=== PATIENT | male | born 1985 | race African-American/Black ===

== ENCOUNTER 2018-02-16 03:26 | Emergency (ER) | payer MEDICAID ==
[~2018-02-16] VITALS: Ht 167.6 cm; Wt 100.0 kg
[2018-02-16] MEDS ORDERED: KETOROLAC 60MG/2ML VIAL IM ONE (04:45)
[2018-02-16] MEDS ORDERED: LIDOCAINE HCL 1% 20ML VIAL (Pyxis) INJ INFIL ONE (06:15)
[2018-02-16] MEDS ORDERED: MORPHINE SULFATE 10 MG/ML CPJ IM ONE (06:45)
[2018-02-16] MEDS ORDERED: LIDOCAINE HCL/PF 1% 10 MG/ML 5ML VIAL IJ ONE (06:45)
[2018-02-16 07:25] VITALS: BP 118/75
== END 2018-02-16 09:15 | disposition home or self-care (01) ==
LOC: ER 08:24
DX: S82.391A Other fracture of lower end of right tibia, initial encounter for closed fracture (principal); S82.831A Other fracture of upper and lower end of right fibula, initial encounter for closed fracture; R60.0 Localized edema; F17.200 Nicotine dependence, unspecified, uncomplicated; Z88.0 Allergy status to penicillin; W01.0XXA Fall on same level from slipping, tripping and stumbling without subsequent striking against object, initial encounter; Y93.51 Activity, roller skating (inline) and skateboarding; Y92.488 Other paved roadways as the place of occurrence of the external cause
CPT/HCPCS: 27825; 73590; 73610; 96372; 99284; J1885; J2270; J3490; Z7610

== ENCOUNTER 2018-02-18 09:55 | Emergency (ER) | payer MEDICAID ==
[~2018-02-18] VITALS: Ht 167.6 cm; Wt 104.0 kg
[2018-02-18 13:40] VITALS: BP 150/80
== END 2018-02-18 14:00 | disposition home or self-care (01) ==
LOC: ER 10:25
DX: Z46.89 Encounter for fitting and adjustment of other specified devices (principal); S82.401G Unspecified fracture of shaft of right fibula, subsequent encounter for closed fracture with delayed healing; M79.89 Other specified soft tissue disorders; X58.XXXD Exposure to other specified factors, subsequent encounter; R03.0 Elevated blood-pressure reading, without diagnosis of hypertension; Z88.0 Allergy status to penicillin; F17.210 Nicotine dependence, cigarettes, uncomplicated
CPT/HCPCS: 29515; 99281

== ENCOUNTER 2019-01-20 10:23 | Emergency (ER) | payer MEDICAID ==
[~2019-01-20] VITALS: Ht 167.6 cm; Wt 104.0 kg
[2019-01-20 11:03] VITALS: BP 155/98
== END 2019-01-20 11:09 | disposition home or self-care (01) ==
LOC: ER 10:23
DX: M25.571 Pain in right ankle and joints of right foot (principal); M79.89 Other specified soft tissue disorders; I10 Essential (primary) hypertension
CPT/HCPCS: 99282

== ENCOUNTER 2019-02-16 10:55 | Emergency (ER) | payer MEDICAID ==
[~2019-02-16] VITALS: Ht 170.2 cm; Wt 89.0 kg
[2019-02-16] MEDS ORDERED: IBUPROFEN 400MG TABLET PO ONE (13:15)
[2019-02-16 14:08] VITALS: BP 135/95
== END 2019-02-16 14:10 | disposition home or self-care (01) ==
LOC: ER 11:23
DX: J06.9 Acute upper respiratory infection, unspecified (principal); F12.10 Cannabis abuse, uncomplicated; Z88.0 Allergy status to penicillin; Z98.890 Other specified postprocedural states
CPT/HCPCS: 99283

== ENCOUNTER 2019-10-07 11:49 | Emergency (ER) | payer MEDICAID | END 2019-10-07 13:05 | disposition left against medical advice (07) | LOC: ER 11:49 | DX: J02.9 Acute pharyngitis, unspecified (principal); R05 Cough; R11.0 Nausea; Z53.21 Procedure and treatment not carried out due to patient leaving prior to being seen by health care provider ==

== ENCOUNTER 2021-08-05 07:29 | Emergency (ER) | payer MEDICAID ==
[~2021-08-05] VITALS: Ht 167.6 cm; Wt 100.0 kg
[2021-08-05 07:39] VITALS: BP 157/105
[2021-08-05 08:18] LABS: BASOPHILS % 0.9 % (0.0-2.0); EOSINOPHILS % 0.4 % (0.0-5.0); HEMATOCRIT. 47.1 % (42.0-52.0); HEMOGLOBIN. 15.7 g/dL (14.0-18.0); LYMPHOCYTES % 29.2 % (20.0-50.0); MEAN CORPUSCULAR HEMOGLOBIN 26.1 pg (28.0-32.0); MEAN CORPUSCULAR VOLUME 78.2 fL (80.0-94.0); MEAN PLATELET VOLUME 8.2 fl (7.4-10.4); NEUTROPHILS % 56.5 % (40.0-76.0); PLATELET 271 x1000/uL (130-400); RED BLOOD CELL COUNT 6.03 mill/uL (4.7-6.1); RED CELL DISTRIBUTION WIDTH 14.6 % (11.6-14.6)
[2021-08-05 08:19] LABS: CLARITY URINE CLEAR (CLEAR); COLOR URINE YELLOW (YELLOW); KETONES URINE 3+ (NEGATIVE); LEUKOCYTE ESTERASE URINE NEGATIVE (NEGATIVE); NITRITE URINE NEGATIVE (NEGATIVE); OCCULT BLOOD URINE 1+ (NEGATIVE); PH URINE 5.5 (4.5-8.0); PROTEIN URINE 2+ (NEGATIVE); SPECIFIC GRAVITY URINE 1.022 (1.005-1.030)
[2021-08-05 08:29] LABS: CHLORIDE 102 mEq/L (98-107)
[2021-08-05] MEDS ORDERED: FAMOTIDINE 20MG/2ML VIAL IV STA (08:32)
[2021-08-05] MEDS ORDERED: SODIUM CHLORIDE 0.9% 1,000 ML IV ONE (08:45)
[2021-08-05] MEDS ORDERED: VISCOUS LIDOCAINE 2% 15 ML UDC PO STA (09:30)
[2021-08-05] MEDS ORDERED: MAGNESIUM/ALUMINUM HYDROXIDE/SIMETHICONE 30ML UDC PO STA (09:30)
[2021-08-05] MEDS ORDERED: ONDA4TAB11 PO (10:06)
[2021-08-05] MEDS ORDERED: OMEP20CA14 MT (10:06)
== END 2021-08-05 10:24 | disposition home or self-care (01) ==
LOC: ER 07:29
DX: K76.0 Fatty (change of) liver, not elsewhere classified (principal); Z88.0 Allergy status to penicillin; Z98.890 Other specified postprocedural states
CPT/HCPCS: 36415; 76705; 80053; 81003; 83690; 85025; 99284; J7030; Z7610

== ENCOUNTER 2023-01-05 08:31 | Emergency (ER) | payer MEDICAID, OTHER ==
[~2023-01-05] VITALS: Ht 165.1 cm; Wt 98.9 kg
[~2023-01-05 08:31] MED LIST: OMEP20CA14 MT; ONDA4TAB11 PO
[2023-01-05 08:40] VITALS: TEMP 98.5; O2SAT 99
[2023-01-05] MEDS ORDERED: AMOX-494 MT (09:23)
[2023-01-05 09:30] VITALS: BP 166/98; PULSE 90; RESP 16
[2023-01-05] MEDS ORDERED: DEXAMETHASONE 10 MG/ML VIAL IM ONE (09:30)
[2023-01-05] MEDS ORDERED: KETOROLAC 60MG/2ML VIAL IM ONE (09:30)
== END 2023-01-05 09:45 | disposition home or self-care (01) ==
LOC: ER 08:31
DX: J02.9 Acute pharyngitis, unspecified (principal); Z88.0 Allergy status to penicillin; Z98.890 Other specified postprocedural states
CPT/HCPCS: 99284; 87430; 87070; 96372; J1100; J1885

== ENCOUNTER 2023-10-12 07:50 | Emergency (ER) | payer MEDICAID ==
[~2023-10-12] VITALS: Ht 167.6 cm; Wt 104.0 kg
[~2023-10-12 07:50] MED LIST changes: +AMOX-494 MT
[2023-10-12 08:10] VITALS: BP 183/102; RESP 20; TEMP 98.1; O2SAT 99
[2023-10-12 08:13] VITALS: PULSE 98
[2023-10-12 08:51] LABS: CLARITY URINE CLEAR (CLEAR); COLOR URINE YELLOW (YELLOW); GLUCOSE URINE NEGATIVE (NEGATIVE); KETONES URINE NEGATIVE (NEGATIVE); LEUKOCYTE ESTERASE URINE NEGATIVE (NEGATIVE); NITRITE URINE NEGATIVE (NEGATIVE); OCCULT BLOOD URINE TRACE (NEGATIVE); PH URINE 5.5 (4.5-8.0); PROTEIN URINE NEGATIVE (NEGATIVE); SPECIFIC GRAVITY URINE 1.024 (1.005-1.030)
[2023-10-12 09:45] LABS: SQUAMOUS EPITHELIAL CELL URINE RARE /lpf (RARE/1+)
[2023-10-12 09:46] LABS: BACTERIA URINE TRACE; RBC URINE 0-2 /hpf (0-2)
[2023-10-12 09:47] LABS: WBC URINE 0-2 /hpf (0-2)
[2023-10-12] MEDS ORDERED: DOXY100C5 MT (10:39)
[2023-10-12] MEDS: CEFTRIAXONE SODIUM 500MG VIAL IM ONE (10:45)
== END 2023-10-12 11:00 | disposition home or self-care (01) ==
LOC: ER 07:50
DX: N45.1 Epididymitis (principal); Z88.0 Allergy status to penicillin
CPT/HCPCS: 99285; 93976; 81003; 76870; 96372; J0696

== ENCOUNTER 2024-06-04 13:41 | Emergency (ER) | payer MEDICAID ==
[~2024-06-04] VITALS: Ht 167.6 cm; Wt 82.0 kg
[~2024-06-04 13:41] MED LIST changes: +DOXY100C5 MT; +ONDA-239 PO; -ONDA4TAB11 PO
[2024-06-04 13:54] VITALS: O2SAT 99
[2024-06-04 14:09] VITALS: BP 152/100; PULSE 96; RESP 16; TEMP 98.3; O2SAT 100
== END 2024-06-04 21:03 | disposition left against medical advice (07) ==
LOC: ER 13:41
DX: R21 Rash and other nonspecific skin eruption (principal); Z53.21 Procedure and treatment not carried out due to patient leaving prior to being seen by health care provider